=== PATIENT | female | born 1950 | race Asian ===

== ENCOUNTER 2016-09-18 09:09 | Outpatient (CLI) | payer OTHER ==
[~2016-09-18 09:09] MED LIST: BENTYL10 MG PO; EXFORGE1 TA1 PO; LODRANE D1 CAP PO; OMEPRAZOLE40 MG PO; PHENYTOIN EX100 MG PO; VIMOVO1 TA1 PO
== END 2016-09-18 19:11 | disposition home or self-care (01) ==
LOC: MAMMO 09:09
DX: Z12.31 Encounter for screening mammogram for malignant neoplasm of breast (principal)
CPT/HCPCS: G0202-TC

== ENCOUNTER 2016-12-20 08:40 | Outpatient (CLI) | payer OTHER ==
[2016-12-20 10:14] LABS: PLATELET COUNT 253 K/uL (152-353)
== END 2016-12-20 09:40 | disposition home or self-care (01) ==
LOC: LABW 08:40
PROVIDERS: Nurse Practitioner
DX: E11.9 Type 2 diabetes mellitus without complications (principal); I10 Essential (primary) hypertension; E78.00 Pure hypercholesterolemia, unspecified; E03.8 Other specified hypothyroidism; E55.9 Vitamin D deficiency, unspecified
CPT/HCPCS: 36415; 80061; 82043; 82306; 82570; 83036; 84443; 85027

== ENCOUNTER 2017-05-07 14:15 | Outpatient (CLI) | payer OTHER | END 2017-05-07 19:23 | disposition home or self-care (01) | LOC: LABW 14:15 | DX: B35.1 Tinea unguium (principal) | CPT/HCPCS: 36415; 84450; 84460 ==

== ENCOUNTER 2017-06-16 14:31 | Outpatient (CLI) | payer OTHER | END 2017-06-16 21:14 | disposition home or self-care (01) | LOC: LABW 14:31 | DX: B35.1 Tinea unguium (principal) | CPT/HCPCS: 36415; 84450; 84460 ==

== ENCOUNTER 2017-10-16 09:18 | Outpatient (CLI) | payer OTHER | END 2017-10-16 20:06 | disposition home or self-care (01) | LOC: MAMMO 09:18 | DX: Z12.31 Encounter for screening mammogram for malignant neoplasm of breast (principal) ==

== ENCOUNTER 2018-02-06 13:54 | Outpatient (CLI) | payer OTHER | END 2018-02-06 22:20 | disposition home or self-care (01) | LOC: US 13:54 | DX: Z13.820 Encounter for screening for osteoporosis (principal); R22.1 Localized swelling, mass and lump, neck ==

== ENCOUNTER 2018-10-27 09:47 | Outpatient (CLI) | payer OTHER | END 2018-10-27 23:01 | disposition home or self-care (01) | LOC: MAMMO 09:47 | DX: Z12.31 Encounter for screening mammogram for malignant neoplasm of breast (principal) ==

== ENCOUNTER 2018-12-31 15:01 | Outpatient (CLI) | payer OTHER | END 2018-12-31 23:59 | disposition home or self-care (01) | LOC: RAD 15:01 | DX: K59.04 Chronic idiopathic constipation (principal) ==

== ENCOUNTER 2019-01-21 09:02 | Outpatient (CLI) | payer OTHER ==
[2019-01-21 09:22] LABS: PLATELET COUNT 234 K/uL (152-353)
[2019-01-21 09:30] LABS: POTASSIUM 4.8 mmol/L (3.6-5.2)
== END 2019-01-21 23:19 | disposition home or self-care (01) ==
LOC: LABW 09:02
PROVIDERS: Nurse Practitioner
DX: Z00.00 Encounter for general adult medical examination without abnormal findings (principal); E11.41 Type 2 diabetes mellitus with diabetic mononeuropathy; E55.9 Vitamin D deficiency, unspecified; R53.82 Chronic fatigue, unspecified; E53.8 Deficiency of other specified B group vitamins
CPT/HCPCS: 36415; 80053; 80061; 82043; 82306; 82570; 82607; 83036; 85027

== ENCOUNTER 2019-02-10 09:10 | Outpatient (CLI) | payer OTHER | END 2019-02-10 20:27 | disposition home or self-care (01) | LOC: RAD 09:10 | DX: Z13.820 Encounter for screening for osteoporosis (principal); N95.8 Other specified menopausal and perimenopausal disorders ==

== ENCOUNTER 2019-02-25 08:01 | Day surgery (SDC) | payer OTHER ==
[~2019-02-25] VITALS: Ht 30.5 cm; Wt 0.5 kg
[2019-02-25 08:47] LABS: PLATELET COUNT 262 K/uL (152-353)
[2019-02-25 09:04] LABS: POTASSIUM 4.3 mmol/L (3.6-5.2)
== END 2019-02-25 11:12 | disposition home or self-care (01) ==
LOC: OR 08:01
PROVIDERS: Internal Medicine
PROC: 0DBK8ZZ Excision of Ascending Colon, Via Natural or Artificial Opening Endoscopic (ICD-10-PCS; principal; 2019-02-25)
DX: D12.2 Benign neoplasm of ascending colon (principal); Z12.11 Encounter for screening for malignant neoplasm of colon
CPT/HCPCS: 80053; 85027; J2001; J2250; J2405; J2704; J2765

== ENCOUNTER 2019-07-19 10:49 | Outpatient (CLI) | payer OTHER | END 2019-07-19 19:14 | disposition home or self-care (01) | LOC: RAD 10:49 | DX: J20.9 Acute bronchitis, unspecified (principal) ==

== ENCOUNTER 2019-09-20 08:48 | Outpatient (CLI) | payer OTHER, MEDICARE | END 2019-09-20 19:25 | disposition home or self-care (01) | LOC: RESP 08:48 | DX: R07.89 Other chest pain (principal) ==

== ENCOUNTER 2019-09-21 08:11 | Outpatient (CLI) | payer OTHER, MEDICARE ==
[~2019-09-21] VITALS: Ht 154.9 cm; Wt 74.8 kg
== END 2019-09-21 19:05 | disposition home or self-care (01) ==
LOC: NM 08:11
DX: R07.89 Other chest pain (principal)
CPT/HCPCS: A9500; J2785

== ENCOUNTER 2019-11-20 08:55 | Emergency (ER) | payer OTHER, MEDICARE ==
[~2019-11-20] VITALS: Ht 154.9 cm; Wt 74.8 kg
[2019-11-20 09:02] VITALS: TEMP 98.5
[2019-11-20 09:34] LABS: PLATELET COUNT 251 K/uL (152-353)
[2019-11-20 09:36] LABS: SODIUM 141 mmol/L (136-145)
[2019-11-20 09:39] LABS: POTASSIUM 5.3 mmol/L (3.6-5.2)
[2019-11-20 11:12] VITALS: BP 132/50
== END 2019-11-20 11:58 | disposition short-term general hospital (02) ==
LOC: ED 08:55
PROVIDERS: Emergency Medicine Emergency Medical Services
PROC: 0T9B70Z Drainage of Bladder with Drainage Device, Via Natural or Artificial Opening (ICD-10-PCS; principal; 2019-11-20)
DX: I11.0 Hypertensive heart disease with heart failure (principal); E11.9 Type 2 diabetes mellitus without complications; I25.10 Atherosclerotic heart disease of native coronary artery without angina pectoris; I50.9 Heart failure, unspecified; I51.7 Cardiomegaly; Z20.828 Contact with and (suspected) exposure to other viral communicable diseases
CPT/HCPCS: 36600; 51702; 80053; 82805; 83880; 84484; 85027; 87040; 87635; 93005; 94660; 96374; 96375; 99285; G2023; J1940; J2060; U00003

== ENCOUNTER 2019-12-08 12:23 | Outpatient (CLI) | payer OTHER, MEDICARE ==
[2019-12-08 12:53] LABS: POTASSIUM 4.1 mmol/L (3.6-5.2)
== END 2019-12-08 19:07 | disposition home or self-care (01) ==
LOC: LABW 12:23
PROVIDERS: Internal Medicine Cardiovascular Disease
DX: Z79.899 Other long term (current) drug therapy (principal); R06.02 Shortness of breath
CPT/HCPCS: 36415; 80048; 83880

== ENCOUNTER 2020-03-25 11:22 | Emergency (ER) | payer OTHER, MEDICARE ==
[~2020-03-25] VITALS: Ht 154.9 cm; Wt 74.8 kg
[2020-03-25 11:34] VITALS: TEMP 98.1
[2020-03-25 12:17] LABS: POTASSIUM 4.6 mmol/L (3.6-5.2); SODIUM 143 mmol/L (136-145)
[2020-03-25 12:18] LABS: PLATELET COUNT 240 K/uL (152-353)
[2020-03-25 12:30] LABS: PARTIAL THROMBOPLASTIN TIME 19.7 SECONDS (24.5-33.6)
[2020-03-25 12:55] VITALS: BP 144/76
== END 2020-03-25 12:55 | disposition home or self-care (01) ==
LOC: ED 11:22
PROVIDERS: Emergency Medicine Emergency Medical Services
DX: R07.89 Other chest pain (principal); R06.02 Shortness of breath
CPT/HCPCS: 36415; 80053; 82550; 83880; 84484; 85027; 85610; 85730; 93005; 99284

== ENCOUNTER 2020-06-08 12:39 | Outpatient (CLI) | payer OTHER ==
[~2020-06-08] VITALS: Ht 154.9 cm; Wt 72.6 kg
[2020-06-08 13:28] LABS: PLATELET COUNT 188 K/uL (152-353)
== END 2020-06-08 15:35 | disposition home or self-care (01) ==
LOC: INF 12:39
PROVIDERS: ATTEND Family Medicine
DX: U07.1 COVID-19 (principal); I10 Essential (primary) hypertension
CPT/HCPCS: 36591; 80053; 85027; 96365; Q0239

== ENCOUNTER 2020-11-21 11:43 | Emergency (ER) | payer OTHER ==
[~2020-11-21] VITALS: Ht 154.9 cm; Wt 72.6 kg
[2020-11-21 11:53] VITALS: BP 170/59; TEMP 97.6
== END 2020-11-21 14:53 | disposition home or self-care (01) ==
LOC: ED 11:43
DX: S00.83XA Contusion of other part of head, initial encounter (principal); S39.012A Strain of muscle, fascia and tendon of lower back, initial encounter; W18.2XXA Fall in (into) shower or empty bathtub, initial encounter; Y92.89 Other specified places as the place of occurrence of the external cause
CPT/HCPCS: 99283

== ENCOUNTER 2021-01-03 12:07 | Outpatient (CLI) | payer OTHER ==
[2021-01-03 13:03] LABS: POTASSIUM 4.2 mmol/L (3.6-5.2)
[2021-01-03 13:18] LABS: PLATELET COUNT 199 K/uL (152-353)
== END 2021-01-03 21:13 | disposition home or self-care (01) ==
LOC: LABW 12:07
PROVIDERS: ATTEND Internal Medicine Cardiovascular Disease
DX: Z79.899 Other long term (current) drug therapy (principal); R06.02 Shortness of breath
CPT/HCPCS: 36415; 80053; 83880; 85027

== ENCOUNTER 2021-01-23 15:31 | Outpatient (CLI) | payer OTHER ==
[2021-01-23 16:33] LABS: SODIUM 143 mmol/L (136-145)
[2021-01-23 16:37] LABS: PLATELET COUNT 262 K/uL (152-353)
== END 2021-01-23 18:00 | disposition home or self-care (01) ==
LOC: LABW 15:31
PROVIDERS: ATTEND Nurse Practitioner Family
DX: R10.31 Right lower quadrant pain (principal); R07.89 Other chest pain
CPT/HCPCS: 36415; 80053; 82550; 82553; 83880; 84484; 85027; 93005

== ENCOUNTER 2021-01-24 07:52 | Outpatient (CLI) | payer OTHER | END 2021-01-24 20:33 | disposition home or self-care (01) | LOC: CT 07:52 | PROVIDERS: ATTEND Nurse Practitioner Family | DX: R10.31 Right lower quadrant pain (principal) | CPT/HCPCS: Q9963 ==

== ENCOUNTER → 2021-01-31 | Outpatient (CLI) | payer OTHER | LOC: MRI 13:59 | PROVIDERS: ATTEND Nurse Practitioner Family | DX: K83.1 Obstruction of bile duct (principal) | CPT/HCPCS: A9576 ==

== ENCOUNTER 2021-02-26 08:02 | Outpatient (CLI) | payer OTHER | END 2021-02-26 19:07 | disposition home or self-care (01) | LOC: RESP 08:02 | PROVIDERS: ATTEND Nurse Practitioner Family | DX: R07.89 Other chest pain (principal) ==

== ENCOUNTER 2021-02-28 08:07 | Outpatient (CLI) | payer OTHER ==
[~2021-02-28] VITALS: Ht 154.9 cm; Wt 70.8 kg
== END 2021-02-28 20:03 | disposition home or self-care (01) ==
LOC: NM 08:07
PROVIDERS: ATTEND Nurse Practitioner Family
DX: R07.89 Other chest pain (principal)
CPT/HCPCS: A9500; J2785

== ENCOUNTER 2021-03-07 01:58 | Emergency (ER) | payer OTHER ==
[~2021-03-07] VITALS: Ht 154.9 cm; Wt 70.8 kg
[2021-03-07 02:33] LABS: PLATELET COUNT 292 K/uL (152-353)
[2021-03-07 02:44] LABS: POTASSIUM 4.5 mmol/L (3.6-5.2)
[2021-03-07 06:20] VITALS: BP 163/67; TEMP 97.8
== END 2021-03-07 06:20 | disposition short-term general hospital (02) ==
LOC: ED 01:58
PROVIDERS: Emergency Medicine Emergency Medical Services
PROC: 0T9B70Z Drainage of Bladder with Drainage Device, Via Natural or Artificial Opening (ICD-10-PCS; principal; 2021-03-07)
DX: I50.9 Heart failure, unspecified (principal); J18.9 Pneumonia, unspecified organism; Z11.52 Encounter for screening for COVID-19
CPT/HCPCS: 36415; 36600; 51702; 80053; 82805; 83735; 83880; 84484; 85027; 85610; 87040; 87635; 93005; 96365; 96375; 99284; J0696; J1940; U0003

== ENCOUNTER 2021-04-30 20:37 | Observation (INO) | payer OTHER ==
[~2021-04-30] VITALS: Ht 180.3 cm; Wt 71.8 kg
[2021-04-30 21:13] VITALS: BP 164/59; TEMP 97.6
[2021-04-30 22:26] LABS: PLATELET COUNT 194 K/uL (152-353)
[2021-04-30 22:42] LABS: POTASSIUM 4.6 mmol/L (3.6-5.2)
[2021-05-01 03:20] VITALS: BP 168/51; TEMP 98; Ht 180.3 cm; Wt 71.8 kg
[2021-05-01 04:04] VITALS: BP 168/51; TEMP 98
[2021-05-01] MEDS ORDERED: VALSARTAN320 MG PO (04:24)
[2021-05-01] MEDS ORDERED: FURO40TA93 PO (04:25)
[2021-05-01] MEDS ORDERED: METO50TA27 PO (04:26)
[2021-05-01] MEDS ORDERED: POTASSIUM CHLO20 ME1 PO (04:27)
[2021-05-01] MEDS ORDERED: CLOP75TA2 PO (04:27)
[2021-05-01] MEDS ORDERED: SPIRONOLACT25 MG PO (04:28)
[2021-05-01] MEDS ORDERED: FARXIGA10 MG PO (04:28)
[2021-05-01] MEDS ORDERED: GRALISE600 MG PO (04:29)
[2021-05-01] MEDS ORDERED: JANUVIA100 MG PO (04:30)
[2021-05-01] MEDS ORDERED: ASPIRIN 81 LOW81 MG PO (04:30)
[2021-05-01] MEDS ORDERED: PHENYTOIN EX100 MG PO (04:32)
[2021-05-01] MEDS ORDERED: OMEP40CA PO (04:33)
[2021-05-01] MEDS ORDERED: CALCIUM 600 + D1 TAB PO (04:33)
[2021-05-01] MEDS ORDERED: BREO ELLIPTA 101 INH INH (04:34)
[2021-05-01 05:44] LABS: PLATELET COUNT 198 K/uL (152-353)
[2021-05-01 05:57] LABS: POTASSIUM 3.9 mmol/L (3.6-5.2)
[2021-05-01 08:00] VITALS: BP 169/66; TEMP 98
[2021-05-01 12:00] VITALS: BP 162/56; TEMP 98
[2021-05-01 16:00] VITALS: BP 107/53; TEMP 98.3
[2021-05-01 19:51] VITALS: BP 174/55; TEMP 98.6
[2021-05-02 00:18] VITALS: BP 141/51; TEMP 95.3
[2021-05-02 04:20] VITALS: BP 146/54; TEMP 98.2
[2021-05-02 05:39] LABS: PLATELET COUNT 183 K/uL (152-353)
[2021-05-02 05:54] LABS: POTASSIUM 3.6 mmol/L (3.6-5.2)
[2021-05-02 08:00] VITALS: BP 109/52; TEMP 97.8
[2021-05-02 12:00] VITALS: BP 134/56; TEMP 98.3
[2021-05-02 16:00] VITALS: BP 151/63
== END 2021-05-02 17:40 | disposition home or self-care (01) ==
LOC: ED 20:37 → MED/SURG 05-01 01:30
PROVIDERS: ADMIT Emergency Medicine Emergency Medical Services; ATTEND Family Medicine
DX: J18.9 Pneumonia, unspecified organism (principal); R05.1 Acute cough; J30.9 Allergic rhinitis, unspecified; Z03.89 Encounter for observation for other suspected diseases and conditions ruled out; Z74.09 Other reduced mobility; M62.81 Muscle weakness (generalized)
CPT/HCPCS: 36415; 36600; 80048; 80053; 80185; 82805; 82948; 83735; 83880; 84100; 84484; 85027; 87040; 87070; 87205; 87502; 87635; 93005; 94640; 94664; 94667; 94668; 94760; 96365; 96367; 96374; 96375; 99220; 99284; G0378; J0456; J0696; J1940; U0003

== ENCOUNTER 2021-06-25 11:14 | Outpatient (CLI) | payer OTHER, MEDICARE ==
[~2021-06-25 11:14] MED LIST changes: +ASPIRIN 81 LOW81 MG PO; +BREO ELLIPTA 101 INH INH; +CALCIUM 600 + D1 TAB PO; +CLOP75TA2 PO; +FARXIGA10 MG PO; +FURO40TA93 PO; +GRALISE600 MG PO; +JANUVIA100 MG PO; +METO50TA27 PO; +OMEP40CA PO; +POTASSIUM CHLO20 ME1 PO; +SPIRONOLACT25 MG PO; +VALSARTAN320 MG PO
[2021-06-25 11:56] LABS: POTASSIUM 4.6 mmol/L (3.6-5.2)
== END 2021-06-25 18:59 | disposition home or self-care (01) ==
LOC: LABW 11:14
PROVIDERS: ATTEND Internal Medicine Cardiovascular Disease
DX: Z79.899 Other long term (current) drug therapy (principal); R06.02 Shortness of breath
CPT/HCPCS: 36415; 80048; 83880

== ENCOUNTER 2021-10-09 11:59 | Outpatient (CLI) | payer OTHER, MEDICARE | END 2021-10-09 19:29 | disposition home or self-care (01) | LOC: RAD 11:59 | PROVIDERS: ATTEND Nurse Practitioner Primary Care | DX: K59.00 Constipation, unspecified (principal) ==

== ENCOUNTER 2022-02-27 16:33 | Outpatient (CLI) | payer OTHER, MEDICARE | END 2022-02-27 19:36 | disposition home or self-care (01) | LOC: RAD 16:33 | PROVIDERS: ATTEND Nurse Practitioner Family | DX: R47.81 Slurred speech (principal); M54.59 Other low back pain ==

== ENCOUNTER 2022-03-04 10:25 | Outpatient (CLI) | payer OTHER, MEDICARE | END 2022-03-04 20:50 | disposition home or self-care (01) | LOC: RAD 10:25 | PROVIDERS: ATTEND Family Medicine | DX: M25.551 Pain in right hip (principal) ==

== ENCOUNTER 2022-03-14 13:22 | Outpatient (CLI) | payer OTHER | END 2022-03-14 23:12 | disposition home or self-care (01) | LOC: MRI 13:22 → CT 14:30 → MRI 15:00 | PROVIDERS: ATTEND Family Medicine | DX: R29.6 Repeated falls (principal) | CPT/HCPCS: 36415; 82565; 84520; A9576 ==

== ENCOUNTER 2022-03-20 08:31 | Outpatient (CLI) | payer OTHER | END 2022-03-20 20:39 | disposition home or self-care (01) | LOC: CT 08:31 | PROVIDERS: ATTEND Family Medicine | DX: R42 Dizziness and giddiness (principal) | CPT/HCPCS: Q9963 ==

== ENCOUNTER 2022-03-29 09:52 | Outpatient (CLI) | payer OTHER | END 2022-03-29 20:30 | disposition home or self-care (01) | LOC: MRI 09:52 | PROVIDERS: ATTEND Anesthesiology | DX: M54.16 Radiculopathy, lumbar region (principal) ==

== ENCOUNTER → 2022-06-25 | Outpatient (CLI) | payer OTHER | LOC: RAD 10:04 | PROVIDERS: ATTEND Nurse Practitioner Family | DX: J20.9 Acute bronchitis, unspecified (principal) ==

== ENCOUNTER 2022-07-17 10:12 | Outpatient (CLI) | payer OTHER | END 2022-07-17 19:14 | disposition home or self-care (01) | LOC: LABW 10:12 | PROVIDERS: ATTEND Internal Medicine Cardiovascular Disease | DX: I50.9 Heart failure, unspecified (principal); Z79.899 Other long term (current) drug therapy | CPT/HCPCS: 36415; 80048; 83880 ==

== ENCOUNTER 2022-12-31 08:04 | Outpatient (CLI) | payer OTHER ==
[~2022-12-31] VITALS: Ht 165.1 cm; Wt 68.0 kg
[~2022-12-31 08:04] MED LIST changes: +ASCO500T18 PO; +LIPITOR40 MG PO; +MONT10TA PO; +NITR0.4S2 SL; +VITAMIN D1000 UNI1 PO; +ZINC PO
== END 2022-12-31 18:52 | disposition home or self-care (01) ==
LOC: NM 08:04
PROVIDERS: ATTEND Specialist
DX: I50.9 Heart failure, unspecified (principal); R07.89 Other chest pain; R42 Dizziness and giddiness; R06.02 Shortness of breath
CPT/HCPCS: A9500; J2785

== ENCOUNTER 2023-02-28 10:01 | Outpatient (CLI) | payer OTHER | END 2023-02-28 19:47 | disposition home or self-care (01) | LOC: RESP 10:01 | PROVIDERS: ATTEND Specialist | DX: I50.9 Heart failure, unspecified (principal); R07.89 Other chest pain; R42 Dizziness and giddiness; R06.02 Shortness of breath ==